=== PATIENT | male | born 1995 | race Hispanic/Latino ===

== ENCOUNTER 2019-01-29 18:39 | Emergency (ER) | payer SELFPAY ==
[2019-01-29] MEDS ORDERED: Sodium Chloride 0.9% 1000 ML 1,000 ML ONE ×2 (19:05→19:48)
[2019-01-29] MEDS ORDERED: Zofran 4 MG/2 ML VIAL ONE (19:05)
[2019-01-29] MEDS ORDERED: Sodium Chloride 0.9% 1000 ML 1,000 ML IV STA ×2 (19:23→19:38)
[2019-01-29] MEDS ORDERED: Zofran 4 MG/2 ML VIAL IV ONE (19:23)
[2019-01-29 19:34] LABS: BASOPHIL % 0.1 % (0.0-0.4); Basophil (Absolute #) 0.01 (0-0.4); Eosinophil % 0.1 % (0.00-5.0); Eosinophil (Absolute #) 0.01 (0-0.5); Granulocyte Absolute (ANC) 8.31 (1.4-6.9); Granulocytes % 75.7 % (36.0-66.0); Hematocrit 51.4 % (42-50); Hemoglobin 17.6 gm/dl (12.5-18.0); Lymphocytes % 16.4 % (24.0-44.0); Mean Corpuscular Hgb Concent. 34.2 g/dl (32-36); Mean Platelet Volume 11.6 fl (6-9.5); Monocyte (Absolute #) 0.84 (0.0-1.3); Monocytes % 7.7 % (0.0-12.0); Platelet Count 239 K/mm3 (150-450); Red Blood Count 6.05 M/mm3 (4.1-5.6); Red Cell Distribution Width 14.3 % (11.5-14.0)
--- NOTE | 2019-01-29 19:38 | ERPHSYRPT ---
- History of Present Illness Time Seen by Provider: 01/29/19 19:10 Source: patient Exam Limitations: language barrier Patient Subjective Stated Complaint: Vomiting Triage Nursing Assessment: Patient ambulated back to ED and transferred self to bed. Patient A+O X 3. Patient complains of vomiting all day. Patient works out in the heat and has been working today and yesterday long hours. Patient's abdomen flat with Positive BS X 4. Patient denies pain or discomfort. Physician History: 23 y/o male presents with vomiting and crampy abd pain. pt outside in high heat and humidity for hours several days in a row. near syncope Timing/Duration: day(s) (2), intermittent, worse Severity: moderate Associated Symptoms: nausea, vomiting, abdominal pain, syncope, weakness Allergies/Adverse Reactions: No Known Drug Allergies Allergy (Unverified 01/29/19 19:06) Immunizations Up to Date: Yes - Review of Systems Constitutional: Weakness Eyes: No Symptoms Ears, Nose, & Throat: No Symptoms Respiratory: No Symptoms Cardiac: No Symptoms Abdominal/Gastrointestinal: Abdominal Pain, Nausea, Vomiting Genitourinary Symptoms: No Symptoms Musculoskeletal: No Symptoms Skin: No Symptoms Neurological: No Symptoms Psychological: No Symptoms Endocrine: No Symptoms Hematologic/Lymphatic: No Symptoms Immunological/Allergic: No Symptoms All Other Systems: Reviewed and Negative - Past Medical History Pertinent Past Medical History: No Neurological History: No Pertinent History ENT History: No Pertinent History Cardiac History: No Pertinent History Respiratory History: No Pertinent History Endocrine Medical History: No Pertinent History Musculoskeletal History: No Pertinent History GI Medical History: No Pertinent History History: No Pertinent History Psycho-Social History: No Pertinent History Male Reproductive Disorders: No Pertinent History - Past Surgical History Past Surgical History: No Neuro Surgical History: No Pertinent History Cardiac: No Pertinent History Respiratory: No Pertinent History Gastrointestinal: No Pertinent History Genitourinary: No Pertinent History Musculoskeletal: No Pertinent History Male Surgical History: No Pertinent History - Social History Smoking Status: Current every day smoker How long have you smoked: years Exposure to second hand smoke: Yes Drug Use: none Patient Lives Alone: No - Nursing Vital Signs Nursing Vital Signs: Initial Vital Signs Pulse Rate 95 H 01/29/19 19:50 Respiratory Rate 18 01/29/19 19:50 O2 Sat by Pulse Oximetry 100 01/29/19 19:50 Pain Scale Pain Intensity 0 - Physical Exam General Appearance: moderate distress, anxiety, lethargy (mild), thin Eye Exam: PERRL/EOMI, eyes nml inspection Ears, Nose, Throat Exam: dry mucous membranes Neck Exam: normal inspection, non-tender, supple, full range of motion Respiratory Exam: normal breath sounds, lungs clear, airway intact, No chest tenderness, No respiratory distress Cardiovascular Exam: regular rate/rhythm, normal heart sounds, normal peripheral pulses Gastrointestinal/Abdomen Exam: soft, normal bowel sounds, tenderness (mild cramping generalized), No guarding, No rebound Rectal Exam: not done Back Exam: normal inspection, normal range of motion, No CVA tenderness, No vertebral tenderness Extremity Exam: normal inspection, normal range of motion, pelvis stable Neurologic Exam: alert, oriented x 3, cooperative, 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 Skin Exam: normal color, warm, dry Lymphatic Exam: No adenopathy SpO2 Interpretation: normal O2 Delivery: Room Air - Course Nursing assessment & vital signs reviewed: Yes Ordered Tests: Active Orders 24 hr Category Date Time Status IV Insertion STAT Care 01/29/19 19:23 Active CBC W DIFF Stat Lab 01/29/19 19:32 Completed CK (IN-HOUSE) [CK-Creatinine Phosphokinase] Stat Lab 01/29/19 19:32 Completed CMP Stat Lab 01/29/19 19:32 Completed CULTURE,URINE Stat Lab 01/29/19 21:05 Received UA W/RFX UR CULTURE Stat Lab 01/29/19 21:05 Completed Urine Triage Profile Stat Lab 01/29/19 21:08 Completed Medication Summary Discontinued Medications Generic Name Dose Route Start Last Admin Trade Name Rashiq PRN Reason Stop Dose Admin Sodium Chloride Confirm 01/29/19 19:05 Sodium Chloride 0.9% 1000 Ml Administered 01/29/19 19:06 Dose 1,000 mls @ ud .ROUTE .STK-MED ONE Sodium Chloride 1,000 mls @ 999 mls/hr 01/29/19 19:23 01/29/19 19:28 Sodium Chloride 0.9% 1000 Ml IV 01/29/19 20:23 999 mls/hr .Q1H1M STA Administration Sodium Chloride 1,000 mls @ 999 mls/hr 01/29/19 19:38 01/29/19 19:50 Sodium Chloride 0.9% 1000 Ml IV 01/29/19 20:38 999 mls/hr .Q1H1M STA Administration Sodium Chloride Confirm 01/29/19 19:48 Sodium Chloride 0.9% 1000 Ml Administered 01/29/19 19:49 Dose 1,000 mls @ ud .ROUTE .STK-MED ONE Ondansetron HCl Confirm 01/29/19 19:05 Zofran 4 Mg/2 Ml Vial Administered 01/29/19 19:06 Dose 4 mg .ROUTE .STK-MED ONE Ondansetron HCl 4 mg 01/29/19 19:23 01/29/19 19:28 Zofran 4 Mg/2 Ml Vial IV 01/29/19 19:24 4 mg STAT ONE Administration Lab/Rad Data: Laboratory Result Diagrams 01/29/19 19:32 01/29/19 19:32 Laboratory Results 01/29/19 01/29/19 01/29/19 Range/Units 21:08 21:05 19:32 WBC (4.0-10.5) K/mm3 RBC (4.1-5.6) M/mm3 Hgb (12.5-18.0) gm/dl Hct (42-50) % MCV (78-100) fl MCH (26-32) pg MCHC (32-36) g/dl RDW (11.5-14.0) % Plt Count (150-450) K/mm3 MPV (6-9.5) fl Gran % (36.0-66.0) % Eos # (Auto) (0-0.5) Absolute Lymphs (auto) (1.0-4.6) Absolute Monos (auto) (0.0-1.3) Lymphocytes % (24.0-44.0) % Monocytes % (0.0-12.0) % Eosinophils % (0.00-5.0) % Basophils % (0.0-0.4) % Absolute Granulocytes (1.4-6.9) Basophils # (0-0.4) Sodium (137-145) mmol/L Potassium (3.5-5.1) mmol/L Chloride (98-107) mmol/L Carbon Dioxide (22-30) mmol/L Anion Gap (5-15) MEQ/L BUN (9-20) mg/dL Creatinine (0.66-1.25) mg/dL Estimated GFR ML/MIN Glucose (74-106) mg/dL Calcium (8.4-10.2) mg/dL Total Bilirubin (0.2-1.3) mg/dL AST (17-59) U/L ALT (0-50) U/L Alkaline Phosphatase (38-126) U/L Creatine Kinase 534 H (55-170) U/L Serum Total Protein (6.3-8.2) g/dL Albumin (3.5-5.0) g/dL Urine Color YELLOW (YELLOW) Urine Appearance CLOUDY (CLEAR) Urine pH 5.0 (5-6) Ur Specific [place] 1.020 (1.005-1.025) Urine Protein 100 (Negative) Urine Ketones SMALL (NEGATIVE) Urine Blood SMALL (0-5) Marshall/ul Urine Nitrite NEGATIVE (NEGATIVE) Urine Bilirubin NEGATIVE (NEGATIVE) Urine Urobilinogen NEGATIVE (0-1) mg/dL Ur Leukocyte Esterase NEGATIVE (NEGATIVE) Urine WBC (Auto) 6-10 (0-5) /HPF Urine RBC (Auto) 6-10 (0-2) /HPF U Hyaline Cast (Auto) 26-50 (0-2) /LPF U Epithel Cells (Auto) NONE (FEW) /HPF Urine Bacteria (Auto) NONE (NEGATIVE) /HPF Granular Casts (Auto) >50 (NEGATIVE) /LPF Urine Mucus (Auto) MODERATE (NEGATIVE) /HPF Urine Culture Reflexed YES (NO) Urine Glucose NEGATIVE (NEGATIVE) mg/dL Urine Opiates Level NEGATIVE (NEGATIVE) Ur Methadone NEGATIVE (NEGATIVE) Urine Barbiturates NEGATIVE (NEGATIVE) Ur Phencyclidine (PCP) NEGATIVE (NEGATIVE) Urine Amphetamine NEGATIVE (NEGATIVE) U Benzodiazepine Level NEGATIVE (NEGATIVE) Urine Cocaine NEGATIVE (NEGATIVE) Urine Marijuana (THC) POSITIVE (NEGATIVE) 01/29/19 01/29/19 Range/Units 19:32 19:32 WBC 11.0 H (4.0-10.5) K/mm3 RBC 6.05 H (4.1-5.6) M/mm3 Hgb 17.6 (12.5-18.0) gm/dl Hct 51.4 H (42-50) % MCV 85.0 (78-100) fl MCH 29.0 (26-32) pg MCHC 34.2 (32-36) g/dl RDW 14.3 H (11.5-14.0) % Plt Count 239 (150-450) K/mm3 MPV 11.6 H (6-9.5) fl Gran % 75.7 H (36.0-66.0) % Eos # (Auto) 0.01 (0-0.5) Absolute Lymphs (auto) 1.80 (1.0-4.6) Absolute Monos (auto) 0.84 (0.0-1.3) Lymphocytes % 16.4 L (24.0-44.0) % Monocytes % 7.7 (0.0-12.0) % Eosinophils % 0.1 (0.00-5.0) % Basophils % 0.1 (0.0-0.4) % Absolute Granulocytes 8.31 H (1.4-6.9) Basophils # 0.01 (0-0.4) Sodium 141 (137-145) mmol/L Potassium 3.7 (3.5-5.1) mmol/L Chloride 100 (98-107) mmol/L Carbon Dioxide 17 L (22-30) mmol/L Anion Gap 27.5 H (5-15) MEQ/L BUN 43 H (9-20) mg/dL Creatinine 2.77 H (0.66-1.25) mg/dL Estimated GFR 30.9 ML/MIN Glucose 131 H (74-106) mg/dL Calcium 11.9 H (8.4-10.2) mg/dL Total Bilirubin 1.00 (0.2-1.3) mg/dL AST 41 (17-59) U/L ALT 41 (0-50) U/L Alkaline Phosphatase 88 (38-126) U/L Creatine Kinase (55-170) U/L Serum Total Protein 12.4 H (6.3-8.2) g/dL Albumin 6.2 H (3.5-5.0) g/dL Urine Color (YELLOW) Urine Appearance (CLEAR) Urine pH (5-6) Ur Specific [place] (1.005-1.025) Urine Protein (Negative) Urine Ketones (NEGATIVE) Urine Blood (0-5) Marshall/ul Urine Nitrite (NEGATIVE) Urine Bilirubin (NEGATIVE) Urine Urobilinogen (0-1) mg/dL Ur Leukocyte Esterase (NEGATIVE) Urine WBC (Auto) (0-5) /HPF Urine RBC (Auto) (0-2) /HPF U Hyaline Cast (Auto) (0-2) /LPF U Epithel Cells (Auto) (FEW) /HPF Urine Bacteria (Auto) (NEGATIVE) /HPF Granular Casts (Auto) (NEGATIVE) /LPF Urine Mucus (Auto) (NEGATIVE) /HPF Urine Culture Reflexed (NO) Urine Glucose (NEGATIVE) mg/dL Urine Opiates Level (NEGATIVE) Ur Methadone (NEGATIVE) Urine Barbiturates (NEGATIVE) Ur Phencyclidine (PCP) (NEGATIVE) Urine Amphetamine (NEGATIVE) U Benzodiazepine Level (NEGATIVE) Urine Cocaine (NEGATIVE) Urine Marijuana (THC) (NEGATIVE) - Progress Progress: improved, re-examined Progress Note: 01/29/19 22:13 pt states he is feeling great and wants to go home. he does not want another liter of ivf. Counseled pt/family regarding: lab results, diagnosis, need for follow-up - Departure Departure Disposition: Home Clinical Impression: Heat causing syncope, Dehydration Condition: Stable Critical Care Time: No Referrals: DOCTOR,NO FAMILY [Primary Care Provider] - Additional Instructions: drink plenty of fluids. avoid heat exposure for 48 hours. return to ED if symptoms worsen Prescriptions: Ondansetron HCl [Zofran] 4 mg PO TID PRN #10 tablet PRN Reason: Nausea/Vomiting
[2019-01-29 19:48] LABS: ANION GAP 27.5 MEQ/L (5-15); Calcium 11.9 mg/dL (8.4-10.2); Creatinine 1 2.77 mg/dL (0.66-1.25); Potassium 3.7 mmol/L (3.5-5.1)
[2019-01-29 19:54] LABS: Total Protein 12.4 g/dL (6.3-8.2)
[2019-01-29 21:00] LABS: ALBUMIN 6.2 g/dL (3.5-5.0)
[2019-01-29 21:15] LABS: Appearance CLOUDY (CLEAR); Bilirubin NEGATIVE (NEGATIVE); Blood SMALL Ery/ul (0-5); Glucose NEGATIVE (NEGATIVE); Granular Casts >50 /LPF (NEGATIVE); Hyaline Casts 26-50 /LPF (0-2); Ketones SMALL (NEGATIVE); Leukocyte Esterase NEGATIVE (NEGATIVE); Mucus MODERATE /HPF (NEGATIVE); Nitrite NEGATIVE (NEGATIVE); Protein,Urine Dip 100 (Negative); Urobilinogen NEGATIVE mg/dL (0-1)
[2019-01-29 21:28] LABS: Amphetamine,Urine NEGATIVE (NEGATIVE); Barbiturate,Urine NEGATIVE (NEGATIVE); Benzodiazepine,Urine NEGATIVE (NEGATIVE); Cocaine,Urine NEGATIVE (NEGATIVE); Methadone,Urine NEGATIVE (NEGATIVE); Opiate,Urine NEGATIVE (NEGATIVE); PCP,Urine NEGATIVE (NEGATIVE); THC,Urine POSITIVE (NEGATIVE)
[2019-01-29 22:22] VITALS: BP 140/80; PULSE 90; O2SAT 96
== END 2019-01-29 22:40 | disposition home or self-care (01) ==
LOC: ED 18:39
DX: T67.1XXA Heat syncope, initial encounter (principal); E86.0 Dehydration
CPT/HCPCS: 36000; 36415; 80053; 80307; 81001; 82550; 85025; 87086; 96374; 99284; J2405